=== PATIENT | male | born 1950 | race African-American/Black ===

== ENCOUNTER 2022-12-02 21:50 | Emergency (ER) | payer OTHER ==
[2022-12-02] MEDS ORDERED: Lidocaine 4% Topical Sol 50 ML BOT ONE (22:45)
[2022-12-02] MEDS ORDERED: Tranexamic Acid 1,000 MG/10 ML VIAL ONE (22:45)
[2022-12-02] MEDS ORDERED: Lidocaine Viscous Sol 2% 15 ml UD Cup ONE (22:50)
[2022-12-02 23:17] LABS: Prothrombin Time 10.8 sec (9.5-12.1)
[2022-12-03] MEDS ORDERED: Silver Nitrate Application 1 EACH ONE (00:15)
== END 2022-12-03 00:48 ==
LOC: EEVIPCON 21:50 → CSHERS 21:50
DX: R04.0 Epistaxis (principal); E78.5 Hyperlipidemia, unspecified; I10 Essential (primary) hypertension; E03.9 Hypothyroidism, unspecified; Z79.82 Long term (current) use of aspirin
CPT/HCPCS: 30905; 85610; 96374